=== PATIENT | female | born 1955 | race Caucasian/White ===

== ENCOUNTER → 2018-09-07 | Outpatient (CLI) | payer OTHER ==
--- NOTE | 2018-09-07 14:19 | RAD ---
EXAM: Cervical spine, 3 views. HISTORY: Pain. COMPARISON: None. FINDINGS: 3 views of the cervical spine are obtained. There is cervical kyphosis. There is severe degenerative endplate remodeling with disc space narrowing and osteophytosis at C3-C7. There is no significant listhesis. No fracture is seen. There is a right lateral head tilt likely due to thoracic scoliosis. IMPRESSION: 1. Severe multilevel degenerative change throughout the majority of the cervical spine. 2. No acute osseous finding. Electronically signed by: Xin Alonzo MD (09/07/2018 2:16 PM) [id number]
== END | disposition home or self-care (01) ==
LOC: RAD 13:40
PROVIDERS: ATTEND Physician Assistant Medical
DX: M47.892 Other spondylosis, cervical region (principal); M48.02 Spinal stenosis, cervical region; M40.292 Other kyphosis, cervical region
CPT/HCPCS: 72040